=== PATIENT | female | born 1990 | race Caucasian/White ===

== ENCOUNTER 2019-02-15 15:47 | Emergency (ER) | payer MEDICAID ==
[~2019-02-15] VITALS: Ht 165.1 cm; Wt 56.2 kg
[2019-02-15] MEDS ORDERED: AMOX TR-K CLV1 EAC2 ORAL (15:53)
[2019-02-15] MEDS ORDERED: ALBUTEROL2.5 MG/3 M INH (15:53)
[2019-02-15 16:12] VITALS: BP 122/68
--- NOTE | 2019-02-15 16:12 | NUR ---
ED Nurse Note: pt walked in to ED due to redness and painful right eye for 2 days. pt also c/o left foot pain for 2 weeks. seen by urgent care dr and x-ray was not remarkable denies any trauma. vivi michel on bedside talking witht he pt regarding plan of care. will continue to monitor.
--- NOTE | 2019-02-15 16:32 | Emergency Room Report ---
History of Present Illness General Chief Complaint: Eye Problems Source: Patient Present Illness HPI 28-year-old female presents to the emergency department complaining of acute onset of erythema, discharge and increased lacrimation of the right eye this morning. Patient reports she noticed sticky crusting as well. Patient states that she is currently being treated for sinusitis. She denies foreign body sensation or scratching sensation in the eye. Denies: eye pain,Loss of vision, Floaters, Flashing lights,or Diplopia/blurry vision. Patient also states that she has been having persistent 6 out of 10 in severity pain to the left foot both on the lateral aspect as well as the dorsum just proximal to the left great toe. Patient states that she had some x-rays performed at the urgent care but she feels that they did not adequately perform them and that they only took one view. Patient states that she was told her no fractures. Patient reports pain exacerbated upon standing and walking. She also reports exacerbation with flexion of the foot. She denies appreciable trauma or fall she denies swelling she reports she is an avid runner and is very active. Patient denies bruising, open wounds or bleeding. She denies fevers or chills. Pt. reports she is not taking anti-inflammatory medications as she is unsure wether or not she is . Pt. denies urinary symptoms or recent UTI/ STI. Allergies: Coded Allergies: No Known Allergies (Unverified , 02/15/19) Patient History Past Medical History: see triage record Past Surgical History: none Pertinent Family History: none Last Menstrual Period: 02/11/19 Reviewed Nursing Documentation: PMH: Agreed; PSxH: Agreed Nursing Documentation-PMH Past Medical History: No History, Except For Hx Asthma: Yes Review of Systems All Other Systems: negative except mentioned in HPI Physical Exam Vital Signs Date Time Temp Pulse Resp B/P (MAP) Pulse Ox O2 Delivery O2 Flow Rate FiO2 02/15/19 15:50 97.5 73 15 97 Room Air 02/15/19 16:12 122/68 Sp02 EP Interpretation: reviewed, normal General Appearance: no apparent distress, alert, GCS 15, non-toxic Head: normocephalic, atraumatic Eyes: bilateral eye normal inspection, bilateral eye PERRL, bilateral eye EOMI , bilateral eye other - negative for photophobia, no obvious fb on exam, some conjunctival injection in the medial aspect of the right eye. no crusting or swelling of the lids. ENT: hearing grossly normal, normal voice, nasal congestion Neck: full range of motion Respiratory: lungs clear, normal breath sounds, speaking full sentences Cardiovascular #1: regular rate, rhythm Musculoskeletal: back normal, gait/station normal, normal range of motion, tender - lateral aspect of the left foot at the base of the 5th metatarsal, and ttp to the dorsum of the left foot just proximal to the base of the great toe. no swelling noted. No obvious deformity, FROM, no bruises or open wounds Neurologic: alert, oriented x3, responsive, motor strength/tone normal, sensory intact, speech normal, grossly normal Psychiatric: judgement/insight normal Skin: normal color, no rash, warm/dry, well hydrated Lymphatic: no adenopathy Medical Decision Making PA Attestation Dr. Forman is my supervising Physician whom patient management has been discussed with. Diagnostic Impression: Primary Impression: Conjunctivitis Qualified Codes: H10.31 - Unspecified acute conjunctivitis, right eye Additional Impression: Tendonitis of foot ER Course 28-year-old female presents to the emergency department complaining of acute onset of erythema, discharge and increased lacrimation of the right eye this morning. Patient reports she noticed sticky crusting as well. Patient states that she is currently being treated for sinusitis. She denies foreign body sensation or scratching sensation in the eye. Denies: eye pain,Loss of vision, Floaters, Flashing lights,or Diplopia/blurry vision. Patient also states that she has been having persistent 6 out of 10 in severity pain to the left foot both on the lateral aspect as well as the dorsum just proximal to the left great toe. Patient states that she had some x-rays performed at the urgent care but she feels that they did not adequately perform them and that they only took one view. Patient states that she was told her no fractures. Patient reports pain exacerbated upon standing and walking. She also reports exacerbation with flexion of the foot. She denies appreciable trauma or fall she denies swelling she reports she is an avid runner and is very active. Patient denies bruising, open wounds or bleeding. She denies fevers or chills. Pt. reports she is not taking anti-inflammatory medications as she is unsure wether or not she is . Pt. denies urinary symptoms or recent UTI/ STI. - Pt denies Contact lens use. Ddx considered but are not limited to: corneal abrasion, acute glaucoma, globe rupture, FB, Corneal Ulcer, conjunctivitis. Iridis, bob's syndrome, arthritis , stress fracture, tendonitis just to name a few. Vital signs: are WNL, pt. is afebrile H&PE are most consistent with: acute bacterial conjunctivitis of the right eye. no obvious signs of Fb. ORDERS: Urine Hcg: negative for -X-ray ordered after pt. verbalized her dissatisfaction with x-ray performed at urgent care, pt. then declined to have repeat x-ray performed here in the ED. ED INTERVENTIONS: -IBU 600mg PO -Patient is provided with crutches and instructed on their use DISCHARGE: At this time pt. is stable for d/c to home. Will provide printed patient care instructions, and any necessary prescriptions. Care plan and follow up instructions have been discussed with the patient prior to discharge. Last Vital Signs Date Time Temp Pulse Resp B/P (MAP) Pulse Ox O2 Delivery O2 Flow Rate FiO2 02/15/19 16:12 97.5 75 15 122/68 97 Room Air Status: improved Disposition: HOME, SELF-CARE Condition: Stable Scripts Naproxen* (NAPROXEN*) 500 Mg Tablet 500 MG ORAL TWICE A WEEK, #14 TAB 0 Refills Prov: Evonne Ariza 02/15/19 Ofloxacin (OCUFLOX) 5 Ml Drops 2 DROP OP BID, #5 ML Prov: Evonne Ariza 02/15/19 Patient Instructions: Bacterial Conjunctivitis, [id number], Foot Sprain Additional Instructions: Take medications as directed. Follow up with a Primary Care Provider in 3-5 days, even if your symptoms have resolved. --Please review list of primary care clinics, if you do not already have a primary care provider Return sooner to ED if new symptoms occur, or current symptoms become worse. - Please note that this Emergency Department Report was dictated using [email or web address] intern technology software, occasionally this can lead to erroneous entry secondary to interpretation by the dictation equipment. Evonne Ariza February 15, 2019 16:32
[2019-02-15] MEDS ORDERED: OCUFLOX5 ML OP (16:53)
[2019-02-15] MEDS ORDERED: NAPROXEN500 M2 ORAL (16:53)
[2019-02-15 17:07] VITALS: BP 122/68
--- NOTE | 2019-02-15 17:07 | NUR ---
ER DISCHARGE NOTE: Patient is cleared to be discharged per ERMD, pt is aox4, on room air, with stable vital signs. pt was given dc and prescription instructions, pt was able to verbalize understanding, pt id band removed without complications. pt is able to ambulate with steady gait. pt took all belongings.
== END 2019-02-15 17:07 | disposition home or self-care (01) ==
LOC: EDBD 15:47 → EMR 16:27
DX: H10.31 Unspecified acute conjunctivitis, right eye (principal); M76.892 Other specified enthesopathies of left lower limb, excluding foot
CPT/HCPCS: 81025; 99283

== ENCOUNTER 2019-03-15 18:39 | Inpatient (IN) | payer MEDICAID ==
[~2019-03-15] VITALS: Ht 165.1 cm; Wt 56.2 kg
[~2019-03-15 18:39] MED LIST: ALBUTEROL2.5 MG/3 M INH; AMOX TR-K CLV1 EAC2 ORAL; NAPROXEN500 M2 ORAL; OCUFLOX5 ML OP
--- NOTE | 2019-03-15 19:20 | Emergency Room Report ---
History of Present Illness General Chief Complaint: Abdominal Pain Source: Patient, Medical Record Present Illness HPI Patient started having right lower quadrant pain that began last night. Stent at this time. She tried eating this morning but felt that it was making her little bit worse. She denies any vomiting but felt nauseated at that time. She feels fevers and chills at this time. She denies any dysuria. She had a hard stool about 5 PM today without blood. She is on her cycle at this time which is normal for her. She was able to work today but left a little bit early because of the pain. She did not take any medications so far today. The patient has a history of ovarian cyst and felt similar. It did not last as long. No chest pain, palpitations, dysuria, shortness of breath, depression, visual changes, headache. 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 Last Menstrual Period: 03/13/2019 Now: No : 0 Para: 0 Reviewed Nursing Documentation: PMH: Agreed; PSxH: Agreed Nursing Documentation-PMH Hx Asthma: Yes Review of Systems All Other Systems: negative except mentioned in HPI Physical Exam Vital Signs Date Time Temp Pulse Resp B/P (MAP) Pulse Ox O2 Delivery O2 Flow Rate FiO2 03/15/19 19:05 99.9 96 18 150/99 (116) 100 Room Air Sp02 EP Interpretation: reviewed, normal General Appearance: well appearing, no apparent distress, GCS 15, non-toxic Head: normocephalic, atraumatic Eyes: bilateral eye normal inspection, bilateral eye PERRL ENT: moist mucus membranes Neck: supple Respiratory: lungs clear, normal breath sounds Cardiovascular #1: regular rate, rhythm Cardiovascular #2: 2+ radial (R) Gastrointestinal: normal inspection, normal bowel sounds, no mass, non- distended, no rebound, guarding - Right lower quadrant, tenderness Genitourinary: no CVA tenderness Musculoskeletal: back normal, gait/station normal, normal range of motion Neurologic: alert, oriented x3, grossly normal Psychiatric: mood/affect normal Skin: normal inspection, warm/dry Medical Decision Making Diagnostic Impression: Primary Impression: Acute appendicitis Qualified Codes: K35.30 - Acute appendicitis with localized peritonitis, without perforation or gangrene ER Course Presents with right lower quadrant pain at its constant since yesterday. Differential includes appendicitis, ovarian cyst, ectopic , gastroenteritis, constipation amongst others. Based on her exam suspicion of appendicitis is high. Evaluation will be with labs and CT of the abdomen and pelvis. Patient be treated with IV hydration, bland, Benadryl and a small dose of morphine. Laboratory with leukocytosis. CMP and urinalysis unremarkable. CT back at 21:20. Appendicitis. Cefepime ordered. Analgesia repeated. Discussed with Dr. Cummings at 21:50. Discussed with patient and family. Admit medical floor Dr. Manriquez. Patient needs to go to the operating room now. Laboratory Tests Test 03/15/19 19:15 03/15/19 19:30 White Blood Count 14.7 K/UL (4.8-10.8) H Red Blood Count 4.39 M/UL (4.20-5.40) Hemoglobin 13.1 G/DL (12.0-16.0) Hematocrit 37.3 % (37.0-47.0) Mean Corpuscular Volume 85 FL (80-99) Mean Corpuscular Hemoglobin 29.7 PG (27.0-31.0) Mean Corpuscular Hemoglobin Concent 35.0 G/DL (32.0-36.0) Red Cell Distribution Width 11.0 % (11.6-14.8) L Platelet Count 206 K/UL (150-450) Mean Platelet Volume 7.7 FL (6.5-10.1) Neutrophils (%) (Auto) 85.1 % (45.0-75.0) H Lymphocytes (%) (Auto) 7.4 % (20.0-45.0) L Monocytes (%) (Auto) 6.8 % (1.0-10.0) Eosinophils (%) (Auto) 0.2 % (0.0-3.0) Basophils (%) (Auto) 0.4 % (0.0-2.0) Prothrombin Time 10.7 SEC (9.30-11.50) Prothrombin Time INR 1.0 (0.9-1.1) PTT 29 SEC (23-33) Sodium Level 137 MMOL/L (136-145) Potassium Level 3.7 MMOL/L (3.5-5.1) Chloride Level 102 MMOL/L (98-107) Carbon Dioxide Level 26 MMOL/L (21-32) Anion Gap 9 mmol/L (5-15) Blood Urea Nitrogen 14 mg/dL (7-18) Creatinine 0.9 MG/DL (0.55-1.30) Estimate Glomerular Filtration Rate > 60 mL/min (>60) Glucose Level 103 MG/DL (74-106) Calcium Level 9.3 MG/DL (8.5-10.1) Total Bilirubin 0.8 MG/DL (0.2-1.0) Aspartate Amino Transferase (AST) 25 U/L (15-37) Alanine Aminotransferase (ALT) 30 U/L (12-78) Alkaline Phosphatase 60 U/L (46-116) Total Protein 7.7 G/DL (6.4-8.2) Albumin 4.5 G/DL (3.4-5.0) Globulin 3.2 g/dL Albumin/Globulin Ratio 1.4 (1.0-2.7) Lipase 117 U/L (73-393) Urine Color Pale yellow Urine Appearance Clear Urine pH 5 (4.5-8.0) Urine Specific Crivitz 1.005 (1.005-1.035) Urine Protein Negative (NEGATIVE) Urine Glucose (UA) Negative (NEGATIVE) Urine Ketones Negative (NEGATIVE) Urine Blood 4+ (NEGATIVE) H Urine Nitrite Negative (NEGATIVE) Urine Bilirubin Negative (NEGATIVE) Urine Urobilinogen Normal MG/DL (0.0-1.0) Urine Leukocyte Esterase Negative (NEGATIVE) Urine RBC 0-2 /HPF (0 - 2) Urine WBC 0 /HPF (0 - 2) Urine Squamous Epithelial Cells Few /LPF (NONE/OCC) Urine Bacteria None /HPF (NONE) Urine HCG, Qualitative Negative (NEGATIVE) CT/MRI/US Diagnostic Results CT/MRI/US Diagnostic Results : Imaging Test Ordered: abd/pelvis Impression appendicitis, no perf Last Vital Signs Date Time Temp Pulse Resp B/P (MAP) Pulse Ox O2 Delivery O2 Flow Rate FiO2 03/16/19 02:11 Nasal Cannula 2.0 03/16/19 01:20 97.6 67 18 113/52 100 Status: improved Disposition: ADMITTED INPATIENT Condition: Serious Bryan Stewart MD Mar 15, 2019 19:20
[2019-03-15 19:25] VITALS: BP 128/56
--- NOTE | 2019-03-15 19:25 | NUR ---
ED Nurse Note: Pt walked in c/o RLQ abd pain started last night and worsen, pt reports nausea and constipation. noted tendernes on palpation and active BS. resp even and unlabored on RA, no active n/v/d at this time, vss, ambulates w/ steady gait, will cont monitor.
--- NOTE | 2019-03-15 19:25 | NUR ---
ED Nurse Note: pt reports last known meal was at 1730.
[2019-03-15] MEDS ORDERED: Metoclopramide 10mg/2ml Inj IVP ONE (19:30)
[2019-03-15] MEDS ORDERED: DiphenhydrAMINE 50mg/ml Inj IVP ONE (19:30)
[2019-03-15] MEDS ORDERED: Morphine Sulfate 2mg/ml Inj(IV/IM USE ONLY) IVP ONE (19:30)
[2019-03-15] MEDS ORDERED: Isovue-300 100ml vial INJ PRN (19:30)
[2019-03-15 19:48] LABS: HEMATOCRIT 37.3 % (37.0-47.0); HEMOGLOBIN 13.1 G/DL (12.0-16.0); MEAN CORPUSCULAR VOLUME 85 FL (80-99); PLATELET COUNT 206 K/UL (150-450); RED BLOOD COUNT 4.39 M/UL (4.20-5.40); WHITE BLOOD COUNT 14.7 K/UL (4.8-10.8)
[2019-03-15 19:50] LABS: LYMPHOCYTES % (AUTO) 7.4 % (20.0-45.0); MONOCYTES % (AUTO) 6.8 % (1.0-10.0); NEUTROPHILS % (AUTO) 85.1 % (45.0-75.0)
[2019-03-15 19:51] LABS: BASOPHILS % (AUTO) 0.4 % (0.0-2.0); EOSINOPHILS % (AUTO) 0.2 % (0.0-3.0)
[2019-03-15 19:55] LABS: APPEARANCE,URINE CLEAR; BILIRUBIN, URINE NEGATIVE (NEGATIVE); COLOR,URINE PALE YELLOW; GLUCOSE, URINE (UA) NEGATIVE (NEGATIVE); KETONES,URINE NEGATIVE (NEGATIVE); LEUKOCYTE ESTERASE ,URINE NEGATIVE (NEGATIVE); NITRITE,URINE NEGATIVE (NEGATIVE); PH,URINE 5 (4.5-8.0); PROTEIN,URINE NEGATIVE (NEGATIVE); UROBILINOGEN,URINE NORMAL MG/DL (0.0-1.0)
[2019-03-15 19:59] LABS: ANION GAP 9 mmol/L (5-15); BLOOD UREA NITROGEN 14 mg/dL (7-18); CALCIUM 9.3 MG/DL (8.5-10.1); CARBON DIOXIDE 26 MMOL/L (21-32); CHLORIDE 102 MMOL/L (98-107); CREATININE 0.9 MG/DL (0.55-1.30); POTASSIUM 3.7 MMOL/L (3.5-5.1); SODIUM 137 MMOL/L (136-145)
[2019-03-15 20:04] LABS: ALANINE AMINOTRANSFERASE 30 U/L (12-78); ALBUMIN 4.5 G/DL (3.4-5.0); ALBUMIN/GLOBULIN RATIO 1.4 (1.0-2.7); ALKALINE PHOSPHATASE 60 U/L (46-116); ASPARTATE AMINO TRANSFERASE 25 U/L (15-37); BILIRUBIN,TOTAL 0.8 MG/DL (0.2-1.0)
[2019-03-15 20:25] VITALS: BP 120/51
--- NOTE | 2019-03-15 21:20 | Diagnostic Imaging Report ---
EXAM: CT Abdomen and Pelvis With Intravenous Contrast CLINICAL HISTORY: ABD PAIN TECHNIQUE: Axial computed tomography images of the abdomen and pelvis with intravenous contrast. CTDI is 10.31 mGy and DLP is 516 mGy-cm. One or more of the following dose reduction techniques were used: automated exposure control, adjustment of the mA and/or kV according to patient size, use of iterative reconstruction technique. COMPARISON: No relevant prior studies available. FINDINGS: Lung bases: Unremarkable. ABDOMEN: Liver: Unremarkable. Gallbladder and bile ducts: No calcified stones. No ductal dilation. Pancreas: Unremarkable. Spleen: Unremarkable. Adrenals: Unremarkable. Kidneys and ureters: Unremarkable. No hydronephrosis. Stomach and bowel: No jean carlos mural thickening. Nonobstructive bowel gas pattern. PELVIS: Appendix: Appendicitis. Inflamed appendix measures about 7 mm. No abscess. Bladder: Unremarkable. Reproductive: Tampon. ABDOMEN and PELVIS: Intraperitoneal space: Unremarkable. Bones/joints: No acute fracture. Soft tissues: Unremarkable. Vasculature: Unremarkable. No abdominal aortic aneurysm. Lymph nodes: No enlarged lymph nodes. IMPRESSION: Appendicitis. Inflamed appendix measures about 7 mm. No abscess.
[2019-03-15] MEDS ORDERED: Cefepime HCl 1 GM in D5W 55 ML IVPB ONE (21:30)
[2019-03-15] MEDS ORDERED: Morphine Sulfate 4mg/ml Inj (IV USE ONLY) IVP ONE (22:00)
--- NOTE | 2019-03-15 22:07 | NUR ---
ED Nurse Note: pt reports she doesn't want pain medication at this time, pt reports she wants to stay up a little longer before the medication, pt advised to notify staff when ready to take medication.
--- NOTE | 2019-03-15 22:30 | NUR ---
ED Nurse Note: pt refused pain medication, pt states she doesn't want to take it and can tolerate pain.
[2019-03-15 22:44] VITALS: BP 138/68
--- NOTE | 2019-03-15 22:47 | Pre-Procedure Note/Attestation ---
Pre-Procedure Note/Attestation Complete Prior to Procedure Planned Procedure: not applicable Procedure Narrative: Laparoscopic Appendectomy possible open appendectomy Indications for Procedure Pre-Operative Diagnosis: Acute appendicitis Attestation I attest that I discussed the nature of the procedure; its benefits; risks and complications; and alternatives (and the risks and benefits of such alternatives ), prior to the procedure, with the patient (or the patient's legal territory service representative). I attest that, if there was a reasonable possibility of needing a blood transfusion, the patient (or the patient's legal territory service representative) was given the [facility] standardized written summary, pursuant to the [place] Blood Safety Act ([place] Health and Safety Code # 1645, as amended). I attest that I re-evaluated the patient just prior to the surgery and that there has been no change in the patient's H&P, except as documented below: Alfonso Cummings MD Mar 15, 2019 22:47
[2019-03-15] MEDS ORDERED: Bacitracin 50000 Units Vial ONE (22:56)
[2019-03-15] MEDS ORDERED: Bupivacaine 0.25% Inj 30ml INJ ONE (22:56)
[2019-03-15] MEDS ORDERED: NeoSporin Gu Irrig 1ml Amp IRRIG ONE (22:56)
[2019-03-15] MEDS ORDERED: fentaNYL 100 mcg/2 mL IV ONE (22:57)
[2019-03-15] MEDS ORDERED: Midazolam 2mg/2ml Inj ONE (22:57)
[2019-03-15] MEDS ORDERED: Succinylcholine 20mg/ml 10ml vial ONE (23:02)
[2019-03-15] MEDS ORDERED: Zemuron 50mg/5ml Inj IV ONE (23:02)
--- NOTE | 2019-03-15 23:17 | NUR ---
ED Nurse Note: pt sent to OR, consent form signed, Dr. gaitan explained to pt regarding surgery. iv intact and patent, vss.
--- NOTE | 2019-03-15 23:18 | NUR ---
ED Nurse Note: endorsed care to OR staff.
--- NOTE | 2019-03-15 23:25 | NUR ---
NURSE NOTES: Received report from [facility]
--- NOTE | 2019-03-15 23:25 | NUR ---
ED Nurse Note: REOPRT GIVEN TO ERICKA MILLAN FROM MS.
[2019-03-15] MEDS ORDERED: LR 1000ml ONE (23:30)
[2019-03-15] MEDS ORDERED: Propofol 200mg/20ml IV ONE (23:30)
[2019-03-15] MEDS ORDERED: Ketorolac 30mg Inj ONE (23:30)
[2019-03-15] MEDS ORDERED: Sterile Water Irrig 1000ml IRRIG ONE (23:30)
[2019-03-16] VITALS (11 sets, daily range): BP systolic 97–120; BP diastolic 49–69
[2019-03-16] MEDS ORDERED: LR 1000ml 1,000 ML IVLG SCH (00:02)
[2019-03-16] MEDS ORDERED: NS Irrig 1000ml IRRIG ONE (00:02)
--- NOTE | 2019-03-16 00:02 | Anethesia Preoperative Eval ---
Anesthesia Pre-op PMH/ROS General Date of Evaluation: Mar 15, 2019 Time of Evaluation: 23:20 Anesthesiologist: Chloe ASA Score: ASA 2 Mallampati Score Class I : Soft palate, uvula, fauces, pillars visible Class II: Soft palate, uvula, fauces visible Class III: Soft palate, base of uvula visible Class IV: Only hard plate visible Mallampati Classification: Class II Surgeon: Emiliano Diagnosis: Acute appendicitis Surgical Procedure: Lap appendectomy Anesthesia History: none Family History: no anesthesia problems Allergies: Coded Allergies: Dairy (Verified Allergy, Unknown, 03/15/19) SOY (Verified Allergy, Unknown, 03/15/19) Medications: see eMAR Patient NPO?: Yes Past Medical History Cardiovascular: Denies: HTN, CAD, CO, valve dz, arrhythmia, other Pulmonary: Reports: asthma - mild; Denies: COPD, SAMSON, other Gastrointestinal/Genitourinary: Denies: GERD, CRI, ESRD, other Neurologic/Psychiatric: Denies: dementia, CVA, depression/anxiety, TIA, other Endocrine: Denies: DM, hypothyroidism, steroids, other HEENT: Denies: cataract (L), cataract (R), glaucoma, ROBINSON (L), ROBINSON (R), other Hematology/Immune: Denies: anemia, DVT, bleeding disorder, other Musculoskeletal/Integumentary: Denies: OA, RA, DJD, DDD, edema, other PMH Narrative: admitted for acute abdominal pain nausea diagnoze with acute appendicitis PSxH Narrative: Oral Sx Anesthesia Pre-op Phys. Exam Physician Exam Last Vital Signs Date Time Temp Pulse Resp B/P (MAP) Pulse Ox O2 Delivery O2 Flow Rate FiO2 03/15/19 23:18 99.4 102 18 135/67 98 Room Air Constitutional: NAD Neurologic: CN 2-12 intact Cardiovascular: RRR, no M/R/G Respiratory: CTA Gastrointestinal: other - some tendernes on palpation Airway Exam Mallampati Score: Class II MO: limited Neck: flexible ROM: full Teeth: intact Dentures: no upper, no lower Anesthesia Pre-op A/P Labs Hematology Test 03/15/19 19:15 White Blood Count 14.7 K/UL (4.8-10.8) H Red Blood Count 4.39 M/UL (4.20-5.40) Hemoglobin 13.1 G/DL (12.0-16.0) Hematocrit 37.3 % (37.0-47.0) Mean Corpuscular Volume 85 FL (80-99) Mean Corpuscular Hemoglobin 29.7 PG (27.0-31.0) Mean Corpuscular Hemoglobin Concent 35.0 G/DL (32.0-36.0) Red Cell Distribution Width 11.0 % (11.6-14.8) L Platelet Count 206 K/UL (150-450) Mean Platelet Volume 7.7 FL (6.5-10.1) Neutrophils (%) (Auto) 85.1 % (45.0-75.0) H Lymphocytes (%) (Auto) 7.4 % (20.0-45.0) L Monocytes (%) (Auto) 6.8 % (1.0-10.0) Eosinophils (%) (Auto) 0.2 % (0.0-3.0) Basophils (%) (Auto) 0.4 % (0.0-2.0) Coagulation Test 03/15/19 19:15 Prothrombin Time 10.7 SEC (9.30-11.50) Prothromb Time International Ratio 1.0 (0.9-1.1) Activated Partial Thromboplast Time 29 SEC (23-33) Chemistry Test 03/15/19 19:15 Sodium Level 137 MMOL/L (136-145) Potassium Level 3.7 MMOL/L (3.5-5.1) Chloride Level 102 MMOL/L (98-107) Carbon Dioxide Level 26 MMOL/L (21-32) Anion Gap 9 mmol/L (5-15) Blood Urea Nitrogen 14 mg/dL (7-18) Creatinine 0.9 MG/DL (0.55-1.30) Estimat Glomerular Filtration Rate > 60 mL/min (>60) Glucose Level 103 MG/DL (74-106) Calcium Level 9.3 MG/DL (8.5-10.1) Total Bilirubin 0.8 MG/DL (0.2-1.0) Aspartate Amino Transf (AST/SGOT) 25 U/L (15-37) Alanine Aminotransferase (ALT/SGPT) 30 U/L (12-78) Alkaline Phosphatase 60 U/L (46-116) Total Protein 7.7 G/DL (6.4-8.2) Albumin 4.5 G/DL (3.4-5.0) Globulin 3.2 g/dL Albumin/Globulin Ratio 1.4 (1.0-2.7) Lipase 117 U/L (73-393) Urine Test Test 03/15/19 19:30 Urine HCG, Qualitative Negative (NEGATIVE) Risk Assessment & Plan Assessment: ASA 2E Plan: GA with ETT Status Change Before Surgery: Tomasz Gregory MD Mar 16, 2019 00:02
[2019-03-16] MEDS ORDERED: Ketorolac 30mg Inj IV PRN (00:15)
[2019-03-16] MEDS ORDERED: DiphenhydrAMINE 50mg/ml Inj IVP PRN (00:15)
[2019-03-16] MEDS ORDERED: Hydromorphone 0.5mg/0.5ml inj IVP PRN ×2 (00:15→00:30)
[2019-03-16] MEDS ORDERED: Meperidine 50mg/ml Inj(FOR RIGORS ONLY) IV PRN (00:15)
[2019-03-16] MEDS ORDERED: Metoclopramide 10mg/2ml Inj IVP PRN ×2 (00:15→00:30)
--- NOTE | 2019-03-16 00:24 | Brief Operative Note ---
Immediate Post Operative Note Operative Note Pre-op Diagnosis: Acute appendicitis Post-op Diagnosis: same as pre-op Findings: consistent w/pre-op dx studies Surgeon: MD Kevin Atmospheric Physicist: None Anesthesiologist: Dr. Corona Anesthesia: general Specimen: yes Complications: none Condition: stable Fluids: per anesthesiologist Estimated Blood Loss: minimal Drains: none Implant(s) used?: No Alfonso Cummings MD Mar 16, 2019 00:24
[2019-03-16] MEDS ORDERED: HYDROmorphone 1mg/ml Carpuject IVP PRN (00:30)
[2019-03-16] MEDS ORDERED: Acetaminophen 650 MG SUPP RECTAL PRN (00:30)
--- NOTE | 2019-03-16 00:31 | Consultation ---
DATE OF CONSULTATION: 03/15/2019 PREOPERATIVE CONSULTATION CONSULTING PHYSICIAN: Alfonso Cummings M.D. REFERRING PHYSICIAN: Dr. Stewart in the emergency room. HISTORY OF PRESENT ILLNESS: This is a 28-year-old female, who presented to the emergency room complaining of abdominal pain since last night. She stated that the pain initially was in the lower abdomen and then it localized at the right lower quadrant. This pain has been associated with nausea, but no vomiting. She denies fever, cough, dysuria, or frequency. She denies previous history of similar pain. She denies vaginal discharge and currently, she is on her period. PAST MEDICAL HISTORY: She denies allergies, diabetes, hypertension, and cardiac or renal diseases. She has a history of asthma. SURGERIES: Oral surgery. MEDICATIONS: Albuterol inhaler p.r.n. SOCIAL HISTORY: The patient is a 28-year-old female, who is single without children. 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 Denies smoking and drinking. REVIEW OF SYSTEMS: Noncontributory. PHYSICAL EXAMINATION: GENERAL: The patient appeared to be a well-developed, well-nourished, 28-year-old female, lying on the gurney, complaining of abdominal pain. HEENT: The head is normocephalic and atraumatic. Eyes, pupils are equal, round, and reactive to light. Mouth is clear. NECK: There is no palpable thyromegaly or adenopathy. CHEST: Clear to auscultation and percussion. HEART: There is no gallop, but she has a grade 2/6 systolic murmur, which can better be appreciated at the pericardial area. The S1 and S2 are within normal limits. ABDOMEN: Soft and flat with tenderness, guarding, and rebound tenderness at the right lower quadrant. Bowel sounds present. GENITAL: Deferred. EXTREMITIES: Within normal limits. LABORATORY DATA: CBC had shown a WBC of 14,700 with a left shift. Chemistry and UA is normal. CAT scan of the abdomen has been interpreted as acute appendicitis. ASSESSMENT: Acute appendicitis. PLAN: After rehydration, the patient will undergo a laparoscopy appendectomy, possible open appendectomy. The risks and benefits have been explained to her. She understood and granted consent. Alfonso Cummings M.D. DR: MAK JOB#: [id number] CC:
--- NOTE | 2019-03-16 00:44 | Immediate Post-Op Evaluation ---
Immediate Post-Op Evalulation Immediate Post-Op Evalulation Procedure: Laparoscopic appendectomy Date of Evaluation: Mar 16, 2019 Time of Evaluation: 00:43 IV Fluids: 700 Blood Products: none Estimated Blood Loss: min Urinary Output: none Blood Pressure Systolic: 116 Blood Pressure Diastolic: 76 Pulse Rate: 84 Respiratory Rate: 22 O2 Sat by Pulse Oximetry: 98 Temperature (Fahrenheit): 97.8 Pain Score (1-10): 2 Nausea: No Vomiting: No Complications none Patient Status: reacts, patent, extubated, none Hydration Status: adequate Tomasz Corona MD Mar 16, 2019 00:44
--- NOTE | 2019-03-16 01:30 | NUR ---
NURSE NOTES: Pt received from PACU, alert and oriented X 4, able to make needs known, family at bedside, pt Vitals 100/59, 98.1, 70HR, 100% on nasal cannuli, no c/o pain at the moment, just c/o dry mouth. 3 laparoscopic sites dry, clean and intact with 2X2 and tegaderm, belongings will be taken home with Mother but iphone and watch will stay at the bedside with the patient.
--- NOTE | 2019-03-16 02:30 | NUR ---
NURSE NOTES: BP 93/45, 97.9, HR 64, 99% NC
[2019-03-16] MEDS: D5 1/2NS w/KCl 20mEq 1,000 ML IV SCH ×3 (02:53→20:24)
--- NOTE | 2019-03-16 03:15 | Operative Note - Dictated ---
DATE OF OPERATION: 03/15/2019 PREOPERATIVE DIAGNOSES: Acute appendicitis. POSTOPERATIVE DIAGNOSIS: Acute appendicitis. OPERATION: Laparoscopy appendectomy. COMPLICATION: None. SURGEON: Alfonso Cummings M.D. SPRAY PAINTER: None. ANESTHESIA: General with endotracheal tube. ANESTHESIOLOGIST: Tomasz Corona M.D. INDICATION: This is a 28-year-old female who presented with abdominal pain since yesterday. The pain was located at right lower quadrant and associated with nausea. Physical examination showed rebound tenderness and guarding at right lower quadrant. CBC showed a WBC of 14,700 with a left shift. A CAT scan of the abdomen was interpreted as acute appendicitis. DESCRIPTION OF PROCEDURE: The patient was placed supine on the operating table. After general anesthesia with endotracheal tube, the abdomen was properly prepped and draped. A small incision was made above the umbilicus through which a Veress needle was introduced into the intraperitoneal cavity. This cavity was insufflated up to 15 millimeter of mercury and then the Veress needle was removed and a 5 mm trocar was introduced into the intraperitoneal cavity through the incision above the umbilicus. Laparoscope and camera were introduced into the intraperitoneal cavity. Through the trocar above the umbilicus, under direct vision, a 5 mm trocar was placed at the suprapubic area and 12 mm trocar was placed at the left lower quadrant of the abdomen. Initially, a rapid exploration was performed showed the diaphragms to be normal. The part of the stomach ____ were normal. The liver was normal. Gallbladder was distended. The bowels were covered with omentum. Exploration of the right lower quadrant cavity was performed and the cecum was identified and then the appendix was identified, which was severely infected and inflamed. The appendix and mesoappendix was exposed. The base of the appendix was under the peritoneum, which was released and the base was exposed. The appendix and mesoappendix were ligated and transected with the help of the VILMA stapler. The appendix was removed from the intraperitoneal cavity through the incision at the left lower quadrant with the help of the Endopouch. After removal of the appendix, the intraabdominal cavity especially the pelvis and the right paracolic gutter was copiously irrigated with antibiotic solution. Another exploration was performed. There was no complication or bleeding. The trocars were removed under direct vision. The incisions were infiltrated with 30 mL of Marcaine 0.25%. The fascia of the left lower quadrant of the abdomen was approximated with [id number] suture of #0 Vicryl. The subcutaneous tissue was approximated with 4-0 chromic and the skin incisions were approximated with running subcuticular suture of 4-0 chromic. The patient tolerated the procedure very well and was transferred to recovery room in stable condition and extubated. The sponge and needle count correct. Estimated blood loss 5 mL. Condition of the patient at the end of the procedure is stable. Alfonso Cummings M.D. DR: ISAIAH JOB#: [id number] CC:
[2019-03-16] MEDS: Piperacillin/Tazobactam 3.375 GM in NS 110 ML IVPB SCH ×3 (06:03→21:05)
[2019-03-16 06:53] LABS: ANION GAP 6 mmol/L (5-15); BLOOD UREA NITROGEN 9 mg/dL (7-18); CALCIUM 8.3 MG/DL (8.5-10.1); CARBON DIOXIDE 28 MMOL/L (21-32); CHLORIDE 105 MMOL/L (98-107); CREATININE 0.9 MG/DL (0.55-1.30); POTASSIUM 4.3 MMOL/L (3.5-5.1); SODIUM 138 MMOL/L (136-145)
[2019-03-16 07:09] LABS: BASOPHILS % (AUTO) 0.4 % (0.0-2.0); EOSINOPHILS % (AUTO) 0.1 % (0.0-3.0); HEMATOCRIT 33.3 % (37.0-47.0); HEMOGLOBIN 11.3 G/DL (12.0-16.0); LYMPHOCYTES % (AUTO) 10.7 % (20.0-45.0); MEAN CORPUSCULAR VOLUME 89 FL (80-99); MONOCYTES % (AUTO) 8.2 % (1.0-10.0); NEUTROPHILS % (AUTO) 80.5 % (45.0-75.0); PLATELET COUNT 150 K/UL (150-450); RED BLOOD COUNT 3.76 M/UL (4.20-5.40); RED CELL DISTRIBUTION WIDTH 11.7 % (11.6-14.8); WHITE BLOOD COUNT 11.5 K/UL (4.8-10.8)
--- NOTE | 2019-03-16 07:53 | NUR ---
HAND-OFF: Report given to ERICKA Clark. Pt stable, was able to walk to the bathroom this morning with minimal assistance and urinate, no c/o pain.
--- NOTE | 2019-03-16 07:55 | NUR ---
NURSE NOTES: Patient is awake and alert,respirations unlabored.IV fluids infusing as ordered. Noted patient has 4 Laprascopic Sites x3 dressing clean.Abdomen is soft.patient state not passing gas at this time. No complaint of nausea. paint state slight discomfort but not needing pain medication at this time.Encourage ambulating with assist..Call light within reach.
--- NOTE | 2019-03-16 09:14 | 48 Hour Post Anesthesia Eval ---
Post Anesthesia Evaluation Procedure: Laparoscopic appendectomy Date of Evaluation: Mar 16, 2019 Time of Evaluation: 09:12 Blood Pressure Systolic: 102 0: 56 Pulse Rate: 72 Respiratory Rate: 18 Temperature (Fahrenheit): 97.6 O2 Sat by Pulse Oximetry: 98 Airway: patent Nausea: No Vomiting: No Pain Intensity: 2 Hydration Status: adequate Cardiopulmonary Status: stable Mental Status/LOC: patient returned to baseline Follow-up Care/Observations: n/a Post-Anesthesia Complications: none Follow-up care needed: ready to discharge Tomasz Corona MD Mar 16, 2019 09:13
--- NOTE | 2019-03-16 13:27 | General Surgery Progress Note ---
General Surgery-Progress Note Subjective Symptoms: improved, passing flatus Objective Last 24 Hour Vital Signs Date Time Temp Pulse Resp B/P (MAP) Pulse Ox O2 Delivery O2 Flow Rate FiO2 03/16/19 12:00 98.4 58 19 97/54 (68) 98 03/16/19 09:13 72 18 98 03/16/19 09:00 Room Air 03/16/19 08:12 98.4 57 18 100/55 (70) 98 03/16/19 04:00 97.7 61 18 102/63 (76) 98 03/16/19 02:11 Nasal Cannula 2.0 03/16/19 01:20 97.6 67 18 113/52 100 Nasal Cannula 3 03/16/19 01:10 64 14 119/56 100 Nasal Cannula 3 03/16/19 01:00 66 15 105/51 100 Nasal Cannula 3 03/16/19 00:50 86 18 112/49 100 Simple Mask 6 03/16/19 00:44 84 22 98 03/16/19 00:40 74 20 113/66 100 Simple Mask 6 03/16/19 00:35 98.2 72 22 106/69 100 Simple Mask 6 03/15/19 23:18 99.4 102 18 135/67 98 Room Air 03/15/19 22:44 99.4 108 18 138/68 100 Room Air 03/15/19 20:25 99.9 72 18 120/51 100 Room Air 03/15/19 19:25 96 18 Room Air 03/15/19 19:25 99.9 75 18 128/56 100 Room Air 03/15/19 19:05 99.9 96 18 150/99 (116) 100 Room Air I&O Intake and Output 03/15/19 03/16/19 19:00 07:00 Intake Total 450 ml Balance 450 ml Intake IV Total 450 ml # Voids 2 Dressing: dry Respiratory: clear Abdomen: soft, flat, tenderness, present bowel sounds Extremities: no tenderness Laboratory Tests Test 03/15/19 19:15 03/15/19 19:30 03/16/19 05:15 White Blood Count 14.7 K/UL (4.8-10.8) H 11.5 K/UL (4.8-10.8) H Red Blood Count 4.39 M/UL (4.20-5.40) 3.76 M/UL (4.20-5.40) L Hemoglobin 13.1 G/DL (12.0-16.0) 11.3 G/DL (12.0-16.0) L Hematocrit 37.3 % (37.0-47.0) 33.3 % (37.0-47.0) L Mean Corpuscular Volume 85 FL (80-99) 89 FL (80-99) Mean Corpuscular Hemoglobin 29.7 PG (27.0-31.0) 30.0 PG (27.0-31.0) Mean Corpuscular Hemoglobin Concent 35.0 G/DL (32.0-36.0) 33.8 G/DL (32.0-36.0) Red Cell Distribution Width 11.0 % (11.6-14.8) L 11.7 % (11.6-14.8) Platelet Count 206 K/UL (150-450) 150 K/UL (150-450) Mean Platelet Volume 7.7 FL (6.5-10.1) 9.5 FL (6.5-10.1) Neutrophils (%) (Auto) 85.1 % (45.0-75.0) H 80.5 % (45.0-75.0) H Lymphocytes (%) (Auto) 7.4 % (20.0-45.0) L 10.7 % (20.0-45.0) L Monocytes (%) (Auto) 6.8 % (1.0-10.0) 8.2 % (1.0-10.0) Eosinophils (%) (Auto) 0.2 % (0.0-3.0) 0.1 % (0.0-3.0) Basophils (%) (Auto) 0.4 % (0.0-2.0) 0.4 % (0.0-2.0) Prothrombin Time 10.7 SEC (9.30-11.50) Prothromb Time International Ratio 1.0 (0.9-1.1) Activated Partial Thromboplast Time 29 SEC (23-33) Sodium Level 137 MMOL/L (136-145) 138 MMOL/L (136-145) Potassium Level 3.7 MMOL/L (3.5-5.1) 4.3 MMOL/L (3.5-5.1) Chloride Level 102 MMOL/L (98-107) 105 MMOL/L (98-107) Carbon Dioxide Level 26 MMOL/L (21-32) 28 MMOL/L (21-32) Anion Gap 9 mmol/L (5-15) 6 mmol/L (5-15) Blood Urea Nitrogen 14 mg/dL (7-18) 9 mg/dL (7-18) Creatinine 0.9 MG/DL (0.55-1.30) 0.9 MG/DL (0.55-1.30) Estimat Glomerular Filtration Rate > 60 mL/min (>60) > 60 mL/min (>60) Glucose Level 103 MG/DL (74-106) 137 MG/DL (74-106) H Calcium Level 9.3 MG/DL (8.5-10.1) 8.3 MG/DL (8.5-10.1) L Total Bilirubin 0.8 MG/DL (0.2-1.0) Aspartate Amino Transf (AST/SGOT) 25 U/L (15-37) Alanine Aminotransferase (ALT/SGPT) 30 U/L (12-78) Alkaline Phosphatase 60 U/L (46-116) Total Protein 7.7 G/DL (6.4-8.2) Albumin 4.5 G/DL (3.4-5.0) Globulin 3.2 g/dL Albumin/Globulin Ratio 1.4 (1.0-2.7) Lipase 117 U/L (73-393) Urine Color Pale yellow Urine Appearance Clear Urine pH 5 (4.5-8.0) Urine Specific [place] 1.005 (1.005-1.035) Urine Protein Negative (NEGATIVE) Urine Glucose (UA) Negative (NEGATIVE) Urine Ketones Negative (NEGATIVE) Urine Blood 4+ (NEGATIVE) H Urine Nitrite Negative (NEGATIVE) Urine Bilirubin Negative (NEGATIVE) Urine Urobilinogen Normal MG/DL (0.0-1.0) Urine Leukocyte Esterase Negative (NEGATIVE) Urine RBC 0-2 /HPF (0 - 2) Urine WBC 0 /HPF (0 - 2) Urine Squamous Epithelial Cells Few /LPF (NONE/OCC) Urine Bacteria None /HPF (NONE) Urine HCG, Qualitative Negative (NEGATIVE) Assessment Additional Comments s/p acute appy Plan Additional Comments continue as before Alfonso Cummings MD 16, 2019 13:27
[2019-03-16] MEDS: Docusate Sod/Senna tab ORAL SCH (17:48)
--- NOTE | 2019-03-16 19:15 | NUR ---
HAND-OFF: Report given to Heather BARNETT.
--- NOTE | 2019-03-16 19:48 | NUR ---
NURSE NOTES: Pt received in bed asleep with head of bed elevated, able to make needs known, call light within reach, no c/o pain, will continue to monitor.
--- NOTE | 2019-03-16 20:16 | NUR ---
CASE MANAGEMENT: INITIAL REVIEW 28 F PRESENTED TO OUR ED FROM HOME CC: ABD PAIN PMHx: DENIES SI:APPENDICITIS. T 99.9 HR 96 RR 18 B/P 150/99 SATS 100% ON RA WBC 14.7 IS: REGLAN IV X1 NS BOLUS X2 BENADRYL IV X1 CEFEPIME IV X1 MORPHINE IV X1 PATIENT ADMITTED TO MED/SURG 03/15/2019 @ 2158 DCP: PATIENT TO BE DISCHARGED TO BE DISCHARGED TO HOME ONCE MEDICALLY CLEARED PLAN OF CARE: DATE OF OPERATION: 03/15/2019 PREOPERATIVE DIAGNOSES: Acute appendicitis. POSTOPERATIVE DIAGNOSIS: Acute appendicitis. OPERATION: Laparoscopy appendectomy. 03/16/2019 SI:APPENDICITIS. T 98.4 HR 57 RR 18 B/P 100/55 SATS 98% ON RA WBC 11.5 GLU 137 CA 8.3 IS: IVF @ 100 mL/HR ZOSYN IV Q8H PEPCID IV Q12H MED/SURG STATUS DCP: PATIENT TO BE DISCHARGED TO BE DISCHARGED TO HOME ONCE MEDICALLY CLEARED PLAN OF CARE: POST OP CARE Addendum: 03/18/19 at 1043 by Radha Chand CM INTERQUAL MET
--- NOTE | 2019-03-16 21:45 | NUR ---
NURSE NOTES: Pt walked around the facility with minimal assistance.
--- NOTE | 2019-03-16 22:45 | Consultation ---
DATE OF CONSULTATION: 03/16/2019 GASTROENTEROLOGY CONSULTATION CHIEF COMPLAINT: I was asked to see this patient by Dr. Gurdeep Manriquez for evaluation of appendicitis. HISTORY OF PRESENT ILLNESS: The patient is a pleasant 28-year-old white woman who came in with a 24-hour history of right-sided abdominal pain with fever and nausea. She came to the emergency room last night and she was diagnosed with acute appendicitis. She underwent a laparoscopic surgery late last night. She feels better this morning with no pain. She has not had any bowel movements or flatus yet. She has been otherwise healthy. PAST MEDICAL HISTORY: History of mild reactive airway disease, on occasional dose of albuterol. FAMILY HISTORY: Noncontributory. SOCIAL HISTORY: The patient does not smoke or drink alcohol. She has a significant other. MEDICATIONS: Albuterol. REVIEW OF SYSTEMS: Otherwise negative. PHYSICAL EXAMINATION: GENERAL: A well-developed and well-nourished white woman, seen in her room. HEENT: Normocephalic and atraumatic. Sclerae anicteric. Oropharynx clear. NECK: Supple. CHEST: Clear to auscultation. CARDIOVASCULAR: Regular rate. ABDOMEN: Soft with wounds that were appropriate from her surgery last night. EXTREMITIES: There is no edema. LABORATORY DATA: Noted. ASSESSMENT: This patient has presented with acute appendicitis and last night had undergone laparoscopic correction. I have explained the patient postop recommendations for diet and exercise. I have advised her to follow up with her surgeon regarding some of the issues. She should ambulate. Her diet should be started as tolerated. RECOMMENDATIONS: Per above discussion and per orders written in the chart. Thank you for asking me to participate in the care of this patient. Bryant Gamez M.D. DR: PATRICK JOB#: [id number] CC: ORACIO
[2019-03-17] VITALS: BP 99/68
--- NOTE | 2019-03-17 03:15 | Consultation ---
DATE OF CONSULTATION: 03/16/2019 INFECTIOUS DISEASE CONSULTATION CONSULTING PHYSICIAN: Aubrey Nguyen M.D. PRIMARY ATTENDING PHYSICIAN: Gurdeep Manriquez M.D. REASON FOR CONSULTATION: Acute appendicitis. HISTORY OF PRESENT ILLNESS: This is a 28-year-old white female, admitted last night complaining of lower abdominal pain. The patient had a borderline fever with temperature of 99.9, had leukocytosis of 14,000. The pain was in right side. A CT scan of the abdomen and pelvis showed acute appendicitis. Early this morning, the patient had laparoscopic appendectomy, currently is getting liquid diet. PAST MEDICAL HISTORY: Significant for asthma. ALLERGIES: Allergic to dairy and soy. MEDICATIONS: Senna, docusate, Pepcid, Zosyn, hydromorphone, Tylenol. SOCIAL HISTORY: Single, has no child. Denies alcohol, drug abuse, or smoking. REVIEW OF SYSTEMS: No fever. No chills. No coughing. No shortness of breath. No significant abdominal pain. She has no bowel movement after the surgery. No problem passing urine. PHYSICAL EXAMINATION: VITAL SIGNS: Temperature 98.4, pulse 68, blood pressure 97/54. GENERAL APPEARANCE: No acute distress. HEAD AND NECK: No oral lesion. HEART: S1 and S2. Regular. LUNGS: Clear. ABDOMEN: Soft, flat, nontender. EXTREMITY: No edema. LABORATORY AND DIAGNOSTIC DATA: WBC today is 11.5, hemoglobin 11.3, hematocrit 33.3, and platelets is 150,000. Sodium 138, potassium 4.3, chloride 105, bicarbonate 28, BUN 9, creatinine 0.9, glucose is 137. UA is negative. CT scan of the abdomen and pelvis showed acute appendicitis without abscess. IMPRESSION: Acute appendicitis without perforation, status post laparoscopic appendectomy. RECOMMENDATIONS: Continue Zosyn perioperatively. At the end of my exam, I thank Dr. Manriquez for involving me in the care of this patient. Aubrey Nguyen M.D. DR: CARON JOB#: [id number] CC: ORACIO
[2019-03-17 04:00] VITALS: BP 118/61
--- NOTE | 2019-03-17 04:00 | NUR ---
NURSE NOTES: Pt walked around the facility with minimal assistance.
[2019-03-17] MEDS: D5 1/2NS w/KCl 20mEq 1,000 ML IV SCH (05:08)
[2019-03-17] MEDS: Piperacillin/Tazobactam 3.375 GM in NS 110 ML IVPB SCH (05:08)
[2019-03-17 06:40] LABS: BASOPHILS % (AUTO) 0.9 % (0.0-2.0); EOSINOPHILS % (AUTO) 2.7 % (0.0-3.0); HEMATOCRIT 34.2 % (37.0-47.0); HEMOGLOBIN 11.6 G/DL (12.0-16.0); LYMPHOCYTES % (AUTO) 19.5 % (20.0-45.0); MEAN CORPUSCULAR VOLUME 90 FL (80-99); MONOCYTES % (AUTO) 9.7 % (1.0-10.0); NEUTROPHILS % (AUTO) 67.3 % (45.0-75.0); PLATELET COUNT 143 K/UL (150-450); RED BLOOD COUNT 3.79 M/UL (4.20-5.40); RED CELL DISTRIBUTION WIDTH 11.9 % (11.6-14.8); WHITE BLOOD COUNT 6.3 K/UL (4.8-10.8)
--- NOTE | 2019-03-17 06:45 | History and Physical Report ---
DATE OF ADMISSION: 03/15/2019 HISTORY OF PRESENT ILLNESS: The patient came with acute pain and appendicitis. Dr. Cummings took the patient to the OR and the patient is complaining of abdominal pain, nausea, and fever for one day. She does have some chills. Denies shortness of breath. Denies cough. Denies orthopnea. PAST MEDICAL HISTORY: Significant for asthma. MEDICATIONS: Albuterol. SOCIAL HISTORY: History of marijuana. Denies alcohol abuse. Denies history of smoking. ALLERGIES: The patient has no known allergies . FAMILY HISTORY: Noncontributory. REVIEW OF SYSTEMS: HEENT: headaches. RESPIRATORY: Denies shortness of breath or cough. CARDIOVASCULAR: Denies chest pain. GASTROINTESTINAL: Does have nausea but no vomiting. Did have abdominal pain, nausea, and fever for one day. EXTREMITIES: Denies pain in the lower extremities. CENTRAL NERVOUS SYSTEM: Denies change in speech pattern. PHYSICAL EXAMINATION: VITAL SIGNS: Temperature is 97.7, pulse is 61, and blood pressure is 102/63. HEENT: PERRLA. NECK: Supple. CHEST: Clear to auscultation. CARDIOVASCULAR: Regular rate and rhythm. No murmur or extra sounds. GASTROINTESTINAL: Right lower quadrant tenderness. No rebound. Abdomen is soft. No organomegaly. EXTREMITIES: No edema. NEUROLOGIC: Moves all four extremities. Sensory intact to light touch. Reflexes equal on both sides. LABORATORY DATA: WBC of 14.7, hemoglobin 13.1, and platelets 206,000. Sodium 137, potassium 3.7, glucose of 103, BUN of 14, creatinine 0.9. ASSESSMENT AND PLAN: Appendicitis, status post appendectomy. I have asked Dr. Aubrey Nguyen, Dr. Burnett, Dr. Cummings, and to see the patient for the azotemia as well as potassium supplements for management of the acute appendicitis and status post appendectomy. Gurdeep Manriquez M.D. DR: STEPHANIE JOB#: [id number] CC:
[2019-03-17 06:55] LABS: ANION GAP 6 mmol/L (5-15); BLOOD UREA NITROGEN 8 mg/dL (7-18); CARBON DIOXIDE 28 MMOL/L (21-32); CHLORIDE 106 MMOL/L (98-107); POTASSIUM 4.7 MMOL/L (3.5-5.1); SODIUM 139 MMOL/L (136-145)
--- NOTE | 2019-03-17 07:21 | NUR ---
HAND-OFF: Report given to ERICKA Mckeon.
--- NOTE | 2019-03-17 07:58 | NUR ---
NURSE NOTES: Patient is alert and oriented. Patient reports pain 6/10 on abdomen, but does not want pain medication. Patient's incision sites are covered with 2x2 and are dry and intact. Patient reports she is passing gas. Side rails are upx2, bed is locked, in lowest position, and call light is within reach. Will continue to monitor.
[2019-03-17 08:00] VITALS: BP 102/68
[2019-03-17] MEDS: Docusate Sod/Senna tab ORAL SCH (08:14)
--- NOTE | 2019-03-17 10:41 | GI Progress Note ---
Assessment/Plan Problems: (1) Acute appendicitis ICD Codes: K35.80 - Unspecified acute appendicitis SNOMED: [id number] Qualifiers: Qualified Codes: K35.30 - Acute appendicitis with localized peritonitis, without perforation or gangrene Status: stable Status Narrative Discussed with Dr. Mayorga. Assessment/Plan Status post laparoscopic appendectomy Advance diet per surgery Pain management Monitor for postoperative nausea and vomiting, Zofran as needed PPI okay for DC per GI standpoint once tolerated solid diet The patient was seen and examined at bedside and all new and available data was reviewed in the patients chart. I agree with the above findings, impression and plan. (Patient seen earlier today. Signature stamp does not reflect patient encounter time.). - Smooth Mayorga MD Subjective Gastrointestinal/Abdominal: Reports: no symptoms Objective Last 24 Hour Vital Signs Date Time Temp Pulse Resp B/P (MAP) Pulse Ox O2 Delivery O2 Flow Rate FiO2 03/17/19 08:00 Room Air 03/17/19 08:00 97.6 63 18 102/68 (79) 97 03/17/19 04:00 97.8 63 18 118/61 (80) 98 03/17/19 00:00 98.1 67 18 99/68 (78) 97 03/16/19 21:00 Room Air 03/16/19 20:00 98.0 20 120/56 (77) 99 03/16/19 16:00 97.6 50 99/52 (68) 99 03/16/19 12:00 98.4 58 19 97/54 (68) 98 Intake and Output 03/16/19 03/17/19 19:00 07:00 Intake Total 2482.5 ml 810.0 ml Balance 2482.5 ml 810.0 ml Intake Oral 1700 ml 700 ml IV Total 782.5 ml 110.0 ml # Voids 14 Laboratory Tests Test 03/17/19 05:45 White Blood Count 6.3 K/UL (4.8-10.8) Red Blood Count 3.79 M/UL (4.20-5.40) L Hemoglobin 11.6 G/DL (12.0-16.0) L Hematocrit 34.2 % (37.0-47.0) L Mean Corpuscular Volume 90 FL (80-99) Mean Corpuscular Hemoglobin 30.5 PG (27.0-31.0) Mean Corpuscular Hemoglobin Concent 33.8 G/DL (32.0-36.0) Red Cell Distribution Width 11.9 % (11.6-14.8) Platelet Count 143 K/UL (150-450) L Mean Platelet Volume 8.2 FL (6.5-10.1) Neutrophils (%) (Auto) 67.3 % (45.0-75.0) Lymphocytes (%) (Auto) 19.5 % (20.0-45.0) L Monocytes (%) (Auto) 9.7 % (1.0-10.0) Eosinophils (%) (Auto) 2.7 % (0.0-3.0) Basophils (%) (Auto) 0.9 % (0.0-2.0) Sodium Level 139 MMOL/L (136-145) Potassium Level 4.7 MMOL/L (3.5-5.1) Chloride Level 106 MMOL/L (98-107) Carbon Dioxide Level 28 MMOL/L (21-32) Anion Gap 6 mmol/L (5-15) Blood Urea Nitrogen 8 mg/dL (7-18) Creatinine 1.0 MG/DL (0.55-1.30) Estimat Glomerular Filtration Rate > 60 mL/min (>60) Glucose Level 91 MG/DL (74-106) Calcium Level 9.0 MG/DL (8.5-10.1) Height (Feet): 5 Height (Inches): 5.00 Weight (Pounds): 124 General Appearance: WD/WN, no apparent distress, alert Cardiovascular: normal rate Respiratory/Chest: normal breath sounds, no respiratory distress Abdominal Exam: normal bowel sounds, non tender, soft, incision site - Clean dry and intact Extremities: normal range of motion, non-tender Nicholas Romero NP Mar 17, 2019 10:41
--- NOTE | 2019-03-17 11:09 | NUR ---
*-* NO INSURANCE INFORMATION IN THE BAR UNABLE TO SEND CLIN ICALS OR REVIEWS *-*
--- NOTE | 2019-03-17 12:32 | General Surgery Progress Note ---
General Surgery-Progress Note Subjective Symptoms: improved, BM Objective Last 24 Hour Vital Signs Date Time Temp Pulse Resp B/P (MAP) Pulse Ox O2 Delivery O2 Flow Rate FiO2 03/17/19 08:00 Room Air 03/17/19 08:00 97.6 63 18 102/68 (79) 97 03/17/19 04:00 97.8 63 18 118/61 (80) 98 03/17/19 00:00 98.1 67 18 99/68 (78) 97 03/16/19 21:00 Room Air 03/16/19 20:00 98.0 20 120/56 (77) 99 03/16/19 16:00 97.6 50 99/52 (68) 99 I&O Intake and Output 03/16/19 03/17/19 19:00 07:00 Intake Total 2482.5 ml 810.0 ml Balance 2482.5 ml 810.0 ml Intake Oral 1700 ml 700 ml IV Total 782.5 ml 110.0 ml # Voids 14 Dressing: dry Wound: clean Respiratory: clear Abdomen: soft, flat, non-tender, present bowel sounds Extremities: no tenderness Laboratory Tests Test 03/17/19 05:45 White Blood Count 6.3 K/UL (4.8-10.8) Red Blood Count 3.79 M/UL (4.20-5.40) L Hemoglobin 11.6 G/DL (12.0-16.0) L Hematocrit 34.2 % (37.0-47.0) L Mean Corpuscular Volume 90 FL (80-99) Mean Corpuscular Hemoglobin 30.5 PG (27.0-31.0) Mean Corpuscular Hemoglobin Concent 33.8 G/DL (32.0-36.0) Red Cell Distribution Width 11.9 % (11.6-14.8) Platelet Count 143 K/UL (150-450) L Mean Platelet Volume 8.2 FL (6.5-10.1) Neutrophils (%) (Auto) 67.3 % (45.0-75.0) Lymphocytes (%) (Auto) 19.5 % (20.0-45.0) L Monocytes (%) (Auto) 9.7 % (1.0-10.0) Eosinophils (%) (Auto) 2.7 % (0.0-3.0) Basophils (%) (Auto) 0.9 % (0.0-2.0) Sodium Level 139 MMOL/L (136-145) Potassium Level 4.7 MMOL/L (3.5-5.1) Chloride Level 106 MMOL/L (98-107) Carbon Dioxide Level 28 MMOL/L (21-32) Anion Gap 6 mmol/L (5-15) Blood Urea Nitrogen 8 mg/dL (7-18) Creatinine 1.0 MG/DL (0.55-1.30) Estimat Glomerular Filtration Rate > 60 mL/min (>60) Glucose Level 91 MG/DL (74-106) Calcium Level 9.0 MG/DL (8.5-10.1) Assessment Additional Comments S/P appy Plan Additional Comments discharge to home Alfonso Cummings MD Mar 17, 2019 12:32
--- NOTE | 2019-03-17 12:35 | Discharge Instructions ---
Discharge Instructions Discharge Instructions Follow up with: my office one week Diet: regular Resume Normal Activity?: Yes Activity: as tolerated, other - not lifting more than 20 LBS For Surgical Patients Dressing Care: other May shower: Yes - apply antibiotics ointment on blister For Congestive Heart Failure Reminder Report to your physician any weight gain of 5 pounds or more in one week. Alfonso Cummings MD Mar 17, 2019 12:35
--- NOTE | 2019-03-17 13:25 | NUR ---
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 Count 143 IS:FAMOTIDINE 20mg ZOSYN 110ml IVPB D5/KCL x1L IV MED/SURG STATUS
[2019-03-17] MEDS ORDERED: CEPHALEXIN500 MG ORAL (14:26)
[2019-03-17] MEDS ORDERED: TRAMADOL HCL50 MG ORAL (14:27)
[2019-03-17] MEDS ORDERED: colace (14:28)
[2019-03-17] MEDS ORDERED: PERICOLACE PO (14:29)
--- NOTE | 2019-03-17 15:09 | NUR ---
NURSE NOTES: Patient discharged Home via private vehicle. Discharge instructions given to patient. Prescription given to patient. Belongings reviewed and accounted for. IV removed. ID bracelet removed. Patient stable upon discharge.
--- NOTE | 2019-03-18 04:48 | Consultation ---
Consult Note Consult Note Heme/Onc Consultation Late Entry Date of Consultation 03/17/2019 History of Present Illness This is a 28 year old patient who began to experience right lower quadrant pain. She denies any vomiting but felt nauseated at that time. She feels fevers and chills at this time. She denies any dysuria. She had a hard stool about 5 PM today without blood. Denies bleeding. We were consulted for thrombocytopenia. 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 Family History: Non Contributory Hx Asthma: Yes Allergies: Coded Allergies: Dairy SOY Review of Systems All Other Systems: negative except mentioned in HPI Physical Exam General Appearance: well appearing, no apparent distress Head: normocephalic, atraumatic Eyes: bilateral eye normal inspection, bilateral eye PERRL ENT: moist mucus membranes Neck: supple Respiratory: lungs clear, normal breath sounds Cardiovascular: regular rate, rhythm Gastrointestinal: normal inspection, normal bowel sounds, no mass, non- distended, no rebound, guarding - Right lower quadrant, tenderness Genitourinary: no CVA tenderness Musculoskeletal: back normal, gait/station normal, normal range of motion Neurologic: alert, oriented x3, grossly normal Psychiatric: mood/affect normal Skin: normal inspection, warm/dry Assessment/Plan ASSESSMENT AND REC'S # Thrombocytopenia - potential causes multifactorial, evaluate liver and viral etiologies to begin, also could be related to underlying medications patient has received. --> Consider Hep panel and HIV --> Consider US abd to evaluate for cirrhosis and hsm --> Consider Peripheral smear ordered to evaluate for blasts /schistocytes --> meds have been reviewed #. Abdominal Pain ---> CT abd revealed Appendicitis. Inflamed appendix measures about 7 mm. No abscess. --> Status post laparoscopic appendectomy #. History of Ovarian Cyst #. Asthma The timing of this note does not necessarily reflect the time of the patient was seen. GREATLY APPRECIATE CONSULTATION. Ellis Baltazar MD Mar 18, 2019 04:48
--- NOTE | 2019-03-19 08:31 | Discharge Summary ---
Discharge Summary Discharge Summary _ DATE OF ADMISSION: 03/15/2019 DATE OF DISCHARGE: 03/17/2019 DISCHARGED BY: Dr Manriquez REASON FOR ADMISSION: 28 years old female with past medical history of asthma, presented with complaint of right lower quadrant pain , which was getting progressively worse. Patient denied vomiting but felt nauseated. She felt feverish. She denied dysuria. Upon evaluation blood pressure was elevated 150/99 , and patient had low-grade fever. CT of the abdomen and pelvis revealed inflamed appendix measuring about 7 mm , no abscess. Laboratory work-up demonstrated leukocytosis WBC 14.7 stable hemoglobin and hematocrit. Stable chemistry. Urinalysis revealed no evidence of UTI Urine test was negative. Surgery consult was requested. Patient started on empiric antibiotic, kept n.p.o. and admitted to medical surgical floor for further surgical management. CONSULTANTS: ID specialist Dr. Dobbins GI specialist Dr. Mayorga loan service officer/oncologist Dr. Baltazar surgery [facility] COURSE: Patient subsequently went to operating room and undergone laparoscopic appendectomy. Course of recovery was uneventful Pain management was addressed. Antiemetic provided as needed. Patient slowly started on diet and was able to tolerate. GI prophylaxis with PPI provided. ID specialist follow. Patient received perioperative antibiotics. No need for further antibiotics . Leukocytosis resolved, no fevers. Patient had acute appendicitis without perforation. Supplemental oxygen was on board as needed to keep pulse oximetry above 92%. Pulse oximetry was stable on room air. No signs of respiratory distress or asthma exacerbation. All labs remained stable. Patient clinically stabilized and was ready for discharge home. FINAL DIAGNOSES: Acute appendicitis Status post laparoscopic appendectomy Asthma DISCHARGE MEDICATIONS: See Medication Reconciliation list. DISCHARGE INSTRUCTIONS: Patient was discharged home . Follow up with primary care provider in one week. I have been assigned to dictate discharge summary for this account. I was not involved in the patient's management. Shonda Fisher NP Mar 19, 2019 08:31
== END 2019-03-17 14:54 | disposition home or self-care (01) | DRG 234 ==
LOC: EMR 19:42 → 4E 21:58
PROC: 0DTJ4ZZ Resection of Appendix, Percutaneous Endoscopic Approach (ICD-10-PCS; principal; 2019-03-15 23:30)
DX: K35.80 Unspecified acute appendicitis (principal); J45.909 Unspecified asthma, uncomplicated
CPT/HCPCS: 36415; 74177; 80048; 80053; 81003; 81025; 83690; 85025; 85610; 85730; 86850; 86900; 86901; 94003; 94150; 96361; 96365; 96375; 99285; C9399; J2250; J2405; J2765

== ENCOUNTER 2019-03-19 19:09 | Emergency (ER) | payer MEDICAID ==
[~2019-03-19] VITALS: Ht 165.1 cm; Wt 54.0 kg
[~2019-03-19 19:09] MED LIST changes: +CEPHALEXIN500 MG ORAL; +PERICOLACE PO; +TRAMADOL HCL50 MG ORAL; +colace
[2019-03-19 19:34] VITALS: BP 129/75
[2019-03-19] MEDS ORDERED: Isovue-300 100ml vial INJ PRN (20:00)
[2019-03-19 20:14] LABS: ANION GAP 10 mmol/L (5-15); BLOOD UREA NITROGEN 14 mg/dL (7-18); CARBON DIOXIDE 30 MMOL/L (21-32); CHLORIDE 100 MMOL/L (98-107); POTASSIUM 3.6 MMOL/L (3.5-5.1); SODIUM 140 MMOL/L (136-145)
[2019-03-19 20:18] LABS: APPEARANCE,URINE CLEAR; BILIRUBIN, URINE NEGATIVE (NEGATIVE); COLOR,URINE PALE YELLOW; GLUCOSE, URINE (UA) NEGATIVE (NEGATIVE); KETONES,URINE NEGATIVE (NEGATIVE); LEUKOCYTE ESTERASE ,URINE NEGATIVE (NEGATIVE); NITRITE,URINE NEGATIVE (NEGATIVE); PH,URINE 5 (4.5-8.0); PROTEIN,URINE NEGATIVE (NEGATIVE); UROBILINOGEN,URINE NORMAL MG/DL (0.0-1.0)
[2019-03-19 20:22] LABS: EOSINOPHILS % (AUTO) 1.6 % (0.0-3.0); HEMATOCRIT 40.3 % (37.0-47.0); HEMOGLOBIN 13.7 G/DL (12.0-16.0); LYMPHOCYTES % (AUTO) 25.1 % (20.0-45.0); MEAN CORPUSCULAR VOLUME 86 FL (80-99); MONOCYTES % (AUTO) 9.1 % (1.0-10.0); NEUTROPHILS % (AUTO) 63.2 % (45.0-75.0); PLATELET COUNT 288 K/UL (150-450); RED BLOOD COUNT 4.69 M/UL (4.20-5.40); RED CELL DISTRIBUTION WIDTH 10.8 % (11.6-14.8); WHITE BLOOD COUNT 7.1 K/UL (4.8-10.8)
[2019-03-19 20:28] LABS: ALANINE AMINOTRANSFERASE 36 U/L (12-78); ALBUMIN 4.6 G/DL (3.4-5.0); ALBUMIN/GLOBULIN RATIO 1.2 (1.0-2.7); ALKALINE PHOSPHATASE 58 U/L (46-116); ASPARTATE AMINO TRANSFERASE 28 U/L (15-37); BILIRUBIN,TOTAL 0.4 MG/DL (0.2-1.0); CKMB 0.6 NG/ML (0.0-3.6); CREATINE KINASE 78 U/L (26-308)
[2019-03-19 20:30] VITALS: BP 143/95
--- NOTE | 2019-03-19 21:00 | Emergency Room Report ---
History of Present Illness General Chief Complaint: Chest Pain Source: Patient Present Illness HPI This patient is postop day 4 from a laparoscopic appendectomy. She states that she has noted pain under both her rib cage areas that is worse with deep inspiration. She denies shortness of breath. However, she states that she feels a pressure sensation and has been using her albuterol inhaler. She states she does have asthma but has not used her inhaler in months. She denies fever or chills. She denies nausea or vomiting. She has been active. She states 1 of her lower incision sites did bleed a little bit. She has some tenderness at the incision sites but overall has very little abdominal pain. She has no other complaints. Allergies: Coded Allergies: Dairy (Verified Allergy, Unknown, 03/15/19) SOY (Verified Allergy, Unknown, 03/15/19) Patient History Past Medical History: see triage record, asthma Past Surgical History: appy - 4 days ago Social History: Denies: smoking, alcohol use, drug use Last Menstrual Period: 03/14/19 Now: No Reviewed Nursing Documentation: PMH: Agreed; PSxH: Agreed Nursing Documentation-PMH Past Medical History: No History, Except For Hx Cardiac Problems: No - Appendectomy Hx Asthma: Yes Hx Cancer: No Hx Gastrointestinal Problems: No Hx Neurological Problems: No Review of Systems All Other Systems: negative except mentioned in HPI Physical Exam Vital Signs Date Time Temp Pulse Resp B/P (MAP) Pulse Ox O2 Delivery O2 Flow Rate FiO2 03/19/19 19:13 97.9 82 14 149/94 (112) 100 Room Air 03/19/19 19:34 100 Sp02 EP Interpretation: reviewed, normal General Appearance: no apparent distress, alert, GCS 15, non-toxic Head: normocephalic, atraumatic Eyes: bilateral eye normal inspection, bilateral eye PERRL ENT: hearing grossly normal, normal pharynx, no angioedema, normal voice Neck: full range of motion, supple/symm/no masses Respiratory: chest non-tender, lungs clear, normal breath sounds, no respiratory distress, no retraction, no accessory muscle use, speaking full sentences Cardiovascular #1: regular rate, rhythm, no edema Gastrointestinal: normal bowel sounds, soft, non-distended, no guarding, no rebound, tenderness - TTP at the surgical incision sites. +healing, intact. Rectal: deferred Musculoskeletal: back normal, gait/station normal, normal range of motion, non- tender Neurologic: alert, oriented x3, responsive, motor strength/tone normal, sensory intact, speech normal Psychiatric: judgement/insight normal, memory normal, mood/affect normal, no suicidal/homicidal ideation Skin: normal color, no rash, warm/dry, well hydrated Medical Decision Making Diagnostic Impression: Primary Impression: Post-operative pain Additional Impression: Pleuritic chest pain ER Course I suspect this patient has some trapped gas secondary to the inflation part of the laparoscopic surgery. The patient's symptoms are primarily at the region of the diaphragm. The symptoms are pleuritic and consistent with this. Patient 's abdomen exam overall is benign. The patient's incision sites are healing well. Chest x-ray is unremarkable. Laboratory work-up is benign. I did discuss the case with Dr. Cummings and he is comfortable with the plan. The patient is given close return precautions and follow-up instructions. Laboratory Tests Test 03/19/19 19:20 03/19/19 19:36 Urine Color Pale yellow Urine Appearance Clear Urine pH 5 (4.5-8.0) Urine Specific [place] 1.015 (1.005-1.035) Urine Protein Negative (NEGATIVE) Urine Glucose (UA) Negative (NEGATIVE) Urine Ketones Negative (NEGATIVE) Urine Blood Negative (NEGATIVE) Urine Nitrite Negative (NEGATIVE) Urine Bilirubin Negative (NEGATIVE) Urine Urobilinogen Normal MG/DL (0.0-1.0) Urine Leukocyte Esterase Negative (NEGATIVE) Urine HCG, Qualitative Negative (NEGATIVE) White Blood Count 7.1 K/UL (4.8-10.8) Red Blood Count 4.69 M/UL (4.20-5.40) Hemoglobin 13.7 G/DL (12.0-16.0) Hematocrit 40.3 % (37.0-47.0) Mean Corpuscular Volume 86 FL (80-99) Mean Corpuscular Hemoglobin 29.2 PG (27.0-31.0) Mean Corpuscular Hemoglobin Concent 34.0 G/DL (32.0-36.0) Red Cell Distribution Width 10.8 % (11.6-14.8) L Platelet Count 288 K/UL (150-450) Mean Platelet Volume 7.4 FL (6.5-10.1) Neutrophils (%) (Auto) 63.2 % (45.0-75.0) Lymphocytes (%) (Auto) 25.1 % (20.0-45.0) Monocytes (%) (Auto) 9.1 % (1.0-10.0) Eosinophils (%) (Auto) 1.6 % (0.0-3.0) Basophils (%) (Auto) 1.0 % (0.0-2.0) Sodium Level 140 MMOL/L (136-145) Potassium Level 3.6 MMOL/L (3.5-5.1) Chloride Level 100 MMOL/L (98-107) Carbon Dioxide Level 30 MMOL/L (21-32) Anion Gap 10 mmol/L (5-15) Blood Urea Nitrogen 14 mg/dL (7-18) Creatinine 1.0 MG/DL (0.55-1.30) Estimate Glomerular Filtration Rate > 60 mL/min (>60) Glucose Level 104 MG/DL (74-106) Calcium Level 10.0 MG/DL (8.5-10.1) Total Bilirubin 0.4 MG/DL (0.2-1.0) Aspartate Amino Transferase (AST) 28 U/L (15-37) Alanine Aminotransferase (ALT) 36 U/L (12-78) Alkaline Phosphatase 58 U/L (46-116) Total Creatine Kinase 78 U/L (26-308) Creatine Kinase MB 0.6 NG/ML (0.0-3.6) Creatine Kinase MB Relative Index 0.7 Total Protein 8.5 G/DL (6.4-8.2) H Albumin 4.6 G/DL (3.4-5.0) Globulin 3.9 g/dL Albumin/Globulin Ratio 1.2 (1.0-2.7) Laboratory Tests Test 03/19/19 19:20 03/19/19 19:36 Urine Color Pale yellow Urine Appearance Clear Urine pH 5 (4.5-8.0) Urine Specific [place] 1.015 (1.005-1.035) Urine Protein Negative (NEGATIVE) Urine Glucose (UA) Negative (NEGATIVE) Urine Ketones Negative (NEGATIVE) Urine Blood Negative (NEGATIVE) Urine Nitrite Negative (NEGATIVE) Urine Bilirubin Negative (NEGATIVE) Urine Urobilinogen Normal MG/DL (0.0-1.0) Urine Leukocyte Esterase Negative (NEGATIVE) Urine HCG, Qualitative Negative (NEGATIVE) White Blood Count 7.1 K/UL (4.8-10.8) Red Blood Count 4.69 M/UL (4.20-5.40) Hemoglobin 13.7 G/DL (12.0-16.0) Hematocrit 40.3 % (37.0-47.0) Mean Corpuscular Volume 86 FL (80-99) Mean Corpuscular Hemoglobin 29.2 PG (27.0-31.0) Mean Corpuscular Hemoglobin Concent 34.0 G/DL (32.0-36.0) Red Cell Distribution Width 10.8 % (11.6-14.8) L Platelet Count 288 K/UL (150-450) Mean Platelet Volume 7.4 FL (6.5-10.1) Neutrophils (%) (Auto) 63.2 % (45.0-75.0) Lymphocytes (%) (Auto) 25.1 % (20.0-45.0) Monocytes (%) (Auto) 9.1 % (1.0-10.0) Eosinophils (%) (Auto) 1.6 % (0.0-3.0) Basophils (%) (Auto) 1.0 % (0.0-2.0) Sodium Level 140 MMOL/L (136-145) Potassium Level 3.6 MMOL/L (3.5-5.1) Chloride Level 100 MMOL/L (98-107) Carbon Dioxide Level 30 MMOL/L (21-32) Anion Gap 10 mmol/L (5-15) Blood Urea Nitrogen 14 mg/dL (7-18) Creatinine 1.0 MG/DL (0.55-1.30) Estimate Glomerular Filtration Rate > 60 mL/min (>60) Glucose Level 104 MG/DL (74-106) Calcium Level 10.0 MG/DL (8.5-10.1) Total Bilirubin Pending Aspartate Amino Transferase (AST) Pending Alanine Aminotransferase (ALT) Pending Alkaline Phosphatase Pending Total Creatine Kinase Pending Creatine Kinase MB Pending Total Protein Pending Albumin Pending Globulin Pending EKG Diagnostic Results Rate: normal Rhythm: NSR ST Segments: no acute changes Rhythm Strip Diag. Results EP Interpretation: yes Rate: 60's Rhythm: NSR, no PVC's, no ectopy Chest X-Ray Diagnostic Results Chest X-Ray Diagnostic Results : Chest X-Ray Ordered: Yes # of Views/Limited/Complete: 1 View Indication: Chest Pain EP Interpretation: Yes Interpretation: no consolidation, no effusion, no pneumothorax, no acute cardiopulmonary disease Impression: No acute disease Electronically Signed by: Christina Castaneda DO Last Vital Signs Date Time Temp Pulse Resp B/P (MAP) Pulse Ox O2 Delivery O2 Flow Rate FiO2 03/19/19 19:34 79 17 Room Air 100 03/19/19 19:34 97.9 129/75 100 Status: improved Disposition: HOME, SELF-CARE Condition: Improved Patient Instructions: Nonspecific Chest Pain Christina Castaneda DO Mar 19, 2019 21:00
[2019-03-19 21:20] VITALS: BP 113/54
[2019-03-19 21:26] VITALS: BP 113/54
--- NOTE | 2019-03-20 10:42 | Diagnostic Imaging Report ---
Indication: Chest pain Technique: One view of the chest Comparison: none Findings: Lungs and pleural spaces are clear. Heart size is normal Impression: No acute process
== END 2019-03-19 21:28 | disposition home or self-care (01) ==
LOC: EMR 20:24
DX: G89.18 Other acute postprocedural pain (principal); R07.89 Other chest pain; Z90.49 Acquired absence of other specified parts of digestive tract; J45.909 Unspecified asthma, uncomplicated; Z91.011 Allergy to milk products; Z91.018 Allergy to other foods
CPT/HCPCS: 36415; 71045; 80053; 81003; 81025; 82550; 82553; 85025; 93005; 96360; 99284

== ENCOUNTER 2019-09-13 20:58 | Emergency (ER) | payer MEDICAID ==
[~2019-09-13] VITALS: Ht 165.1 cm; Wt 54.4 kg
[2019-09-13 21:13] VITALS: BP 122/74
--- NOTE | 2019-09-13 21:13 | NUR ---
ED Nurse Note: PT walked in to ED for C/O loss of voice with runny nose, mild dry cough x 2 week. since 2 days ago, pt started to have sore throat and difficulty swallowing. denies any fever, nausea, vomitting. pt is alert x4.
--- NOTE | 2019-09-13 21:25 | Emergency Room Report ---
History of Present Illness General Chief Complaint: Sore Throat Source: Patient, Medical Record Present Illness HPI Disclaimer: Please note that this report is being documented using DRAGON technology. This can lead to erroneous entry secondary to incorrect interpretation by the dictating instrument. HPI: 29-year-old female presents for evaluation of sore throat and ear pain bilaterally. Patient states she has had a raspy voice for approximately 3 weeks but approximately 2 days ago she noted pain with swallowing and bilateral ear pressure. Notes nasal congestion but denies cough, fevers, sweats, nausea, vomiting, diarrhea. Denies any changes in hearing or tinnitus. No vertiginous symptoms. Has been using [id number] lozenges and syrups for sore throat. Minimal improvement. Was concerned over the change in her condition as her throat now hurts and he was having the ear pain. PMH: Appendicitis PSH: Appendectomy Allergies: None reported Social Hx: Denies drug or alcohol abuse Allergies: Coded Allergies: Dairy (Verified Allergy, Unknown, 03/15/19) SOY (Verified Allergy, Unknown, 03/15/19) Patient History Last Menstrual Period: Sep 02 Now: No Nursing Documentation-PMH Hx Cardiac Problems: No - Appendectomy Hx Asthma: Yes Hx Cancer: No Hx Gastrointestinal Problems: No Hx Neurological Problems: No Review of Systems All Other Systems: negative except mentioned in HPI Physical Exam Vital Signs Date Time Temp Pulse Resp B/P (MAP) Pulse Ox O2 Delivery O2 Flow Rate FiO2 09/13/19 21:10 97.7 74 18 122/74 (90) 95 Room Air General: Awake and alert, no acute distress HEENT: NC/AT. EOMI. noninjected sclera. No significant sinus tenderness. Depending membranes are pearly fuentes, nonbulging with clear landmarks and no effusions bilaterally. Uvula is midline. Tonsils are 1+, mildly erythematous but no edema, no exudate. No swelling of the retropharynx, no exudate. Voice is somewhat raspy. No stridor, no respiratory distress Resp: Normal work of breathing, no cough, no wheezing. Skin: Intact. No abrasions, laceration or rash over the exposed skin MSK: Normal tone and bulk. Moving all extremities. No obvious deformity. Neuro: Awake and alert. Mentating appropriately Medical Decision Making Diagnostic Impression: Primary Impression: Sore throat Additional Impression: Upper respiratory infection ER Course 29-year-old female presents evaluation of sore throat and bilateral ear pain. No evidence of acute otitis media or strep pharyngitis at this time. Patient likely experiencing symptoms secondary to a viral upper respiratory infection and should improve over the next few days. She instructed to follow-up with her PMD or return to the emergency department her symptoms fail to improve with symptomatic [id number]-[id number] remedies. Do not believe she requires emergent labs or imaging at this time. She is well-appearing with stable vital signs. Will be discharged with outpatient follow-up and return if her symptoms change. She understands and agrees with the treatment plan. Will be discharged home. Last Vital Signs Date Time Temp Pulse Resp B/P (MAP) Pulse Ox O2 Delivery O2 Flow Rate FiO2 09/13/19 21:10 97.7 74 18 122/74 (90) 95 Room Air Disposition: HOME, SELF-CARE Condition: Stable Referrals: [facility] Urszula Drake. [facility] Patient Instructions: Upper Respiratory Infection, Adult, Sore Throat Additional Instructions: Your eval today in the emergency department for sore throat and upper respiratory symptoms. Likely this is a virus that should improve over the next few days. Use [id number]-[id number] medicated lozenges, throat sprays, decongestions and Tylenol Motrin as needed. Follow-up with your doctor as soon as possible to discuss the symptoms. If you have not seen significant improvements in the next few days or if your symptoms suddenly worsen return to the emergency department for reevaluation. Arcadio Ravi MD Sep 13, 2019 21:24
--- NOTE | 2019-09-13 21:25 | NUR ---
ER DISCHARGE NOTE: Patient is cleared to be discharged per ERMD, pt is aox4, on room air, with stable vital signs. pt was given dc instructions, pt was able to verbalize understanding, pt id band removed without complications. pt is able to ambulate with steady gait. pt took all belongings.
== END 2019-09-13 21:24 | disposition home or self-care (01) ==
LOC: EMR 21:15
DX: J06.9 Acute upper respiratory infection, unspecified (principal); R07.0 Pain in throat; H92.03 Otalgia, bilateral; Z90.89 Acquired absence of other organs
CPT/HCPCS: 99281